=== PATIENT | male | born 1955 | race Caucasian/White ===

== ENCOUNTER 2020-10-22 19:06 | Emergency (ER) | payer OTHER ==
[~2020-10-22] VITALS: Ht 185.4 cm; Wt 102.1 kg
--- NOTE | 2020-10-22 19:16 | NUR ---
ED Nurse Note: Patient walked into the ED from home due to covid s/sx. Pt c/o body aches, cough, headache and was sent by his supervisor print line after testing positive for covid today. Pt was ordered to receive BAM. Pt is AAOX4 and ambulatory. Placed on ISO bed
--- NOTE | 2020-10-22 19:17 | NUR ---
ED Nurse Note: ERMD at bedside
--- NOTE | 2020-10-22 19:28 | Emergency Room Report ---
History of Present Illness General Chief Complaint: Upper Respiratory Illness Source: Patient Present Illness HPI Disclaimer: Please note that this report is being documented using [employer] technology. This can lead to erroneous entry secondary to incorrect interpretation by the dictating instrument. HPI: 65-year-old male with a history of hypertension and asthma presents for Bamlanivimab infusion. Sent by his color card maker after testing positive for COVID- 19 by rapid antigen test office today approximately 3 PM. He reports 2 days of fatigue, intermittent shortness of breath, myalgias. Denies cough or severe shortness of breath. Has not needed his albuterol inhaler. PMH: Hypertension, asthma PSH: Kidney stone Allergies: Reviewed Social Hx: Reviewed Allergies: Coded Allergies: SHELLFISH DERIVED (Verified Allergy, Unknown, 10/22/20) COVID-19 Screening Contact w/high risk pt: Yes Experienced COVID-19 symptoms?: Yes COVID-19 Testing performed [employer]: Yes COVID-19 Screening: Positive COVID-19 COVID-19 Testing Source: [facility] Nursing Documentation-PMH Hx Hypertension: Yes Hx Asthma: Yes Review of Systems All Other Systems: negative except mentioned in HPI Physical Exam Vital Signs Date Time Temp Pulse Resp B/P (MAP) Pulse Ox O2 Delivery O2 Flow Rate FiO2 10/22/20 19:16 99.1 68 18 129/81 (97) 92 Room Air General: Awake and alert, no acute distress HEENT: NC/AT. EOMI. Cardiovascular: RRR. S1 and S2 normal. No murmur appreciated Resp: Normal work of breathing. No cough, wheezing or crackles appreciated Skin: Intact. No abrasions, laceration or rash over the exposed skin MSK: Normal tone and bulk. Moving all extremities. No obvious deformity. Neuro: Awake and alert. Mentating appropriately. Medical Decision Making ER Course This is a 65-year-old male recently tested positive for COVID-19 sent in by color card maker for infusion of Bamlanivimab infusion. Patient meets criteria for monoclonal antibody infusion. Provided with infusion drug fact sheet for patients who are considering receiving IV infusion. Patient understands and is aware that this medication is authorized for emergency use by the FDA and is sti ll undergoing full testing. Understands monitoring necessary following infusion. Patient understands that this medication is intended to reduce symptoms and prevent hospitalization however the patient may require further testing, interventions and even hospitalization if symptoms worsen. Patient understands this is not a cure for COVID-19 infection. Addressed all patient questions. They have consented to receive monoclonal antibody infusion and for monitoring 1 hour post infusion for anaphylactic reaction. Infusion was administered via IV over the duration of 1 hour. The patient was monitored and observed for any reactions to infusion that require acute medical intervention. The patient did not have any significant reactions during the 1 hour observation period following infusion and is stable for discharge and outpatient follow-up with PMD. Instructed to return with new or worsening symptoms. Understand agree with this treatment plan. Last Vital Signs Date Time Temp Pulse Resp B/P (MAP) Pulse Ox O2 Delivery O2 Flow Rate FiO2 10/22/20 19:16 99.1 68 18 129/81 (97) 92 Room Air Disposition: HOME, SELF-CARE Condition: Stable Suman Larose MD Oct 22, 2020 19:28
[2020-10-22] MEDS ORDERED: Bamlanivimab Fact Sheet MISC ONE (19:30)
[2020-10-22] MEDS ORDERED: Bamlanivimab 700 MG in NS 275 ML IVPB SCH (19:30)
[2020-10-22 19:41] VITALS: BP 129/81
--- NOTE | 2020-10-22 22:00 | NUR ---
ER DISCHARGE NOTE: Patient is cleared to be discharged per ERMD, pt is aox4, on room air, with stable vital signs. pt was given dc and prescription instructions, pt was able to verbalize understanding, pt id band and iv site removed without complications. pt is able to ambulate with steady gait. pt took all belongings.
[2020-10-22 22:05] VITALS: BP 129/81
== END 2020-10-22 22:00 | disposition home or self-care (01) ==
LOC: EMR 20:30
DX: U07.1 COVID-19 (principal); R53.83 Other fatigue; M79.10 Myalgia, unspecified site; I10 Essential (primary) hypertension; J45.909 Unspecified asthma, uncomplicated; R06.02 Shortness of breath; Z91.013 Allergy to seafood
CPT/HCPCS: 96365; 99284; J7050; Q0239